=== PATIENT | female | born 1975 | race Caucasian/White ===

== ENCOUNTER 2017-06-10 12:00 | Day surgery (SDC) | payer OTHER ==
[2017-06-10] MEDS ORDERED: SOD CHLORIDE 0.9% 1,000 ML IV (13:30)
[2017-06-10] MEDS ORDERED: FENTAnyl 50 MCG/ML VIAL ×2 (15:08→16:10)
[2017-06-10] MEDS: CEFAZOLIN 2 GM/50 ML (PMX) 50 ML IVPB (15:21)
[2017-06-10] MEDS: BUPIVACAINE 0.25% (MPF) 30 ML INJ (15:25)
[2017-06-10] MEDS ORDERED: PROPOFOL 20 ML (15:49)
[2017-06-10] MEDS ORDERED: CEFAZOLIN 1 GM INJ (15:49)
[2017-06-10] MEDS ORDERED: ROCURONIUM 50 MG INJ (15:49)
[2017-06-10] MEDS ORDERED: ROPIVACAINE 0.5 % 30 ML VIAL (15:49)
[2017-06-10] MEDS ORDERED: SUCCINYLCHOLINE CHLORIDE 100 MG/5 ML SYG IV (15:49)
[2017-06-10] MEDS ORDERED: LIDOCAINE 100 MG SYRINGE (15:49)
[2017-06-10] MEDS ORDERED: SUGAMMADEX SODIUM 200 MG/2 ML VIAL IV ×2 (15:50→16:14)
[2017-06-10] MEDS ORDERED: DEXAMETHASONE 4 MG/ML 1 ML INJ (16:17)
[2017-06-10] MEDS: HYDROCODONE/APAP (5/325) TAB PO (17:10)
[2017-06-10] MEDS ORDERED: ONDANSETRON 4 MG INJ IV (17:30)
[2017-06-10] MEDS ORDERED: FENTAnyl 50 MCG/ML VIAL IV (17:30)
[2017-06-10] MEDS ORDERED: DIPHENHYDRAMINE 50 MG INJ IV (17:30)
[2017-06-10] MEDS ORDERED: HYDROmorphONE (0.2 MG/ML) 10ML SYG IV ×2 (17:30)
[2017-06-10] MEDS ORDERED: MEPERIDINE 25 MG INJ IV (17:30)
[2017-06-10] MEDS ORDERED: METOCLOPRAMIDE 10 MG INJ IV (17:30)
[2017-06-10] MEDS: HYDROmorphONE (0.2 MG/ML) 10ML SYG IV (17:35)
[2017-06-10] MEDS: FENTAnyl 50 MCG/ML VIAL IV (17:35)
== END 2017-06-10 18:48 | disposition home or self-care (01) ==
LOC: SDS 12:00
DX: K80.10 Calculus of gallbladder with chronic cholecystitis without obstruction (principal)
CPT/HCPCS: 47562; 84703; 88304

== ENCOUNTER 2017-06-13 13:59 | Emergency (ER) | payer OTHER ==
[2017-06-13] MEDS: SOD CHLORIDE 0.9% 1,000 ML IV (14:49)
[2017-06-13 14:50] LABS: ADD MAN DIFF? NO
[2017-06-13 15:01] LABS: ADD UMIC YES; UR ASCORBIC ACID NEGATIVE (NEGATIVE); UR BACTERIA MODERATE /HPF (NONE SEEN); UR BILIRUBIN (Dip) NEGATIVE (NEGATIVE); UR BLOOD (Dip) NEGATIVE (NEGATIVE); UR CLARITY SLIGHTLY CLOUDY (CLEAR); UR COLOR YELLOW (YELLOW); UR GLUCOSE (Dip) NEGATIVE (NEGATIVE); UR KETONES (Dip) NEGATIVE (NEGATIVE); UR LEUKOCYTE ESTERASE (Dip) 1+ Leu/ul (NEGATIVE); UR NITRITE (Dip) NEGATIVE (NEGATIVE); UR RBC 1 /HPF (0-5); UR SQUAMOUS EPITHELIAL CELL FEW /HPF (FEW); UR TOTAL PROTEIN (Dip) NEGATIVE (NEGATIVE); UR UROBILINOGEN (Dip) NEGATIVE (NEGATIVE); UR WBC 3 /HPF (0-5)
[2017-06-13 15:02] LABS: BASOPHILS % 0.3 % (0.0-2.0); EOSINOPHILS # 0.7 10^3/ul (0.0-0.5); EOSINOPHILS % 9.3 % (0.0-7.0); HEMATOCRIT 35.3 % (37.0-47.0); HEMOGLOBIN 12.1 g/dl (12.0-16.0); LYMPHOCYTES # 1.9 10^3/ul (0.8-2.9); LYMPHOCYTES % 25.7 % (15.0-51.0); MEAN CORPUSCULAR HEMOGLOBIN 29.8 pg (29.0-33.0); MEAN CORPUSCULAR HGB CONC 34.3 g/dl (32.0-37.0); MEAN CORPUSCULAR VOLUME 86.9 fl (82.0-101.0); MEAN PLATELET VOLUME 10.9 fl (7.4-10.4); MONOCYTE # 0.6 10^3/ul (0.3-0.9); MONOCYTES % 7.6 % (0.0-11.0); NEUTROPHIL # 4.1 10^3/ul (1.6-7.5); NEUTROPHILS % 56.8 % (39.0-77.0); PLATELET COUNT 354 10^3/UL (140-415); RED BLOOD COUNT 4.06 10^6/ul (4.20-5.40); RED CELL DISTRIBUTION WIDTH 14.8 % (11.5-14.5)
[2017-06-13 15:02] LABS: WHITE BLOOD COUNT 7.2 10^3/ul (4.8-10.8)
[2017-06-13 15:23] LABS: ALANINE AMINOTRANSFERASE 50 IU/L (13-69); ALBUMIN 4.5 g/dl (3.3-4.9); ALBUMIN/GLOBULIN RATIO 1.36; ALKALINE PHOSPHATASE 64 IU/L (42-121); ANION GAP 13 (8-16); ASPARTATE AMINO TRANSFERASE 26 IU/L (15-46); BILIRUBIN,INDIRECT 0.3 mg/dl (0-1.1); BILIRUBIN,TOTAL 0.3 mg/dl (0.2-1.3); BLOOD UREA NITROGEN 4 mg/dl (7-20); CALCIUM 9.3 mg/dl (8.4-10.2); CARBON DIOXIDE 28 mmol/L (21-31); CHLORIDE 102 mmol/L (97-110); CREATININE 0.56 mg/dl (0.44-1.00); GLUCOSE 93 mg/dl (70-220); LIPASE 45 U/L (23-300); POTASSIUM 3.7 mmol/L (3.5-5.1); SODIUM 139 mmol/L (135-144); TOTAL PROTEIN 7.8 g/dl (6.1-8.1)
[2017-06-13] MEDS: BISACODYL 10 MG SUPP PR (17:18)
[2017-06-13] MEDS: DIPHENHYDRAMINE 50 MG INJ IV (18:21)
== END 2017-06-13 19:57 | disposition home or self-care (01) ==
LOC: E/R 13:59
DX: J98.11 Atelectasis (principal); R40.2142 Coma scale, eyes open, spontaneous, at arrival to emergency department; R40.2252 Coma scale, best verbal response, oriented, at arrival to emergency department; R40.2362 Coma scale, best motor response, obeys commands, at arrival to emergency department; Z90.49 Acquired absence of other specified parts of digestive tract
CPT/HCPCS: 36415; 71045; 74018; 80053; 81001; 83690; 85025; 96374; 99284-25